=== PATIENT | male | born 1980 | race African-American/Black ===

== ENCOUNTER 2017-02-09 11:20 | Emergency (ER) | payer MEDICARE, OTHER ==
--- NOTE | 2017-02-09 13:41 | RAD ---
3 VIEWS RIGHT SHOULDER: Date: 02/09/17 HISTORY: Right shoulder pain. COMPARISON: 05/28/15. FINDINGS: AP internally, externally, and scapular Y views of right shoulder obtained. Three views right shoulder demonstrate no evidence of right shoulder fractures, subluxations, or bony lesions. IMPRESSION: Normal 3 views right shoulder. POS: [facility]
[2017-02-09] MEDS ORDERED: Diazepam 5 MG TAB ONE (13:46)
== END 2017-02-09 14:29 | disposition home or self-care (01) ==
LOC: ERS 11:20
DX: M25.511 Pain in right shoulder (principal); F31.9 Bipolar disorder, unspecified; F17.210 Nicotine dependence, cigarettes, uncomplicated

== ENCOUNTER 2018-02-01 14:48 | Observation (INO) | payer MEDICARE, MEDICAID ==
[2018-02-01 15:40] LABS: Bilirubin Negative (Negative); Blood, Urine Negative (Negative); Clarity CLEAR (Clear); Glucose, Urine (Dipstick) Negative (Negative); Leukocyte Negative (Negative); Nitrite Negative (Negative); Protein, Urine (Dipstick) Negative (Neg-Trace); Specific Gravity, Urine 1.004 (1.002-1.036); Urobilinogen 0.2 mg/dL (0.2-1.0); pH, Urine 7.5 (5.0-9.0)
[2018-02-01] MEDS ORDERED: Fosphenytoin Sodium 1,500 MG in Sodium Chloride 0.9% 100 ML IVPB SCH (15:45)
[2018-02-01] MEDS ORDERED: Lorazepam 2 MG/ML VIAL ONE (15:46)
[2018-02-01 15:51] LABS: #Basophils 0.1 thou/uL (0.0-0.2); #Eosinphils 0.3 thou/uL (0.0-0.7); #Lymphocytes 2.9 thou/uL (1.20-3.40); #Monocytes 0.8 thou/uL (0.11-0.59); #Neutrophils 4.9 thou/uL (1.40-6.50); %Eosinophils 3.7 % (0.0-10.0); %Lymphocytes 31.9 % (21.0-51.0); %Monocytes 9.1 % (0.0-10.0); %Neutrophils 54.3 % (42.0-75.0); Hemoglobin 14.6 g/dL (14.0-18.0); Mean Corpuscular HGB CONC 33.4 g/dL (32.0-36.0); Mean Corpuscular Hemoglobin 28.9 pg (27.0-31.0); Mean Corpuscular Volume 86.5 fL (78.0-98.0); Mean Platelet Volume 7.9 fL (7.4-10.4); Platelet Count 255 thou/uL (130-400); RBC Distribution Width 12.9 % (11.5-14.5); Red Blood Cell (RBC) Count 5.04 mill/uL (4.70-6.10)
[2018-02-01 15:51] LABS: Amphetamine Detected (NotDetected); Bacteria/HPF None Seen HPF (None Seen); Barbiturates Screen Detected (NotDetected); Benzodiazepine Screen Not Detected (NotDetected); Cocaine Metabolite Screen Not Detected (NotDetected); Hyaline Casts/LPF 0-3 HYALINE CAST LPF (0-3 Hyaline); Medtox Reader # READER 1; Methadone Not Detected (NotDetected); Methamphetamine Detected (NotDetected); Opiate Screen Not Detected (NotDetected); Oxycodone Screen Not Detected (NotDetected); Phencyclidine (PCP) Not Detected (NotDetected); RBC/HPF None Seen HPF (0-3); Squamous Epithelial None Seen HPF (0-3); THC/Cannabinoid Screen Not Detected (NotDetected); Tricyclic Screen Detected (NotDetected); WBC/HPF None Seen HPF (0-3)
[2018-02-01 15:52] LABS: Medtox Control Line Valid? VALID (VALID)
[2018-02-01 16:13] LABS: ALT (SGPT) 14 U/L (8-55); AST (SGOT) 16 U/L (5-34); Albumin 4.2 g/dL (3.5-5.0); Alkaline Phosphatase 69 U/L (40-150); Anion Gap 13 mmol/L (10-20); BUN (Urea Nitrogen) 11 mg/dL (8.9-20.6); Bilirubin, Total 0.6 mg/dL (0.2-1.2); Calc. Creatinine Clearance 0 mL/min (70-130); Carbon Dioxide 23 mmol/L (22-29); Chloride 102 mmol/L (98-107); Estimated GFR-MDRD Greater than 90; Globulin 3.3 g/dL (2.4-3.5); Glucose 76 mg/dL (70-105); Potassium 3.9 mmol/L (3.5-5.1); Protein, Total 7.5 g/dL (6.0-8.3); Sodium 134 mmol/L (136-145)
--- NOTE | 2018-02-01 16:17 | CT ---
CT HEAD WITHOUT CONTRAST: Technique: Multiple axial tomograms were obtained through the head without IV enhancement. Indication: Seizures. Comparison: 09-10-17 FINDINGS: Ventricles have normal size and position. No mass, edema, or hemorrhage. No evidence of infarct. No a cute finding or interval change noted. IMPRESSION: No acute abnormality. POS: [facility]
[2018-02-01 20:47] VITALS: BMI 27.9
[2018-02-01] MEDS ORDERED: Ondansetron PF 4 MG/2 ML Vial IVP PRN (21:30)
[2018-02-01] MEDS ORDERED: Acetaminophen 325 MG TAB PO PRN (21:30)
[2018-02-01] MEDS ORDERED: Lorazepam 2 MG/ML VIAL SLOW IVP PRN (21:30)
[2018-02-01] MEDS ORDERED: Ondansetron ODT 4 MG TAB PO PRN (21:30)
[2018-02-01] MEDS: Sodium Chloride 0.9% 1,000 ML IV SCH (22:11)
[2018-02-02] MEDS: Sodium Chloride 0.9% 1,000 ML IV SCH (05:50)
[2018-02-02 06:37] LABS: #Basophils 0.1 thou/uL (0.0-0.2); #Eosinphils 0.3 thou/uL (0.0-0.7); #Lymphocytes 2.3 thou/uL (1.20-3.40); #Monocytes 0.6 thou/uL (0.11-0.59); #Neutrophils 3.3 thou/uL (1.40-6.50); %Basophils 1.3 % (0.0-1.0); %Eosinophils 4.2 % (0.0-10.0); %Lymphocytes 35.1 % (21.0-51.0); %Monocytes 9.5 % (0.0-10.0); %Neutrophils 49.9 % (42.0-75.0); Hemoglobin 13.9 g/dL (14.0-18.0); Mean Corpuscular HGB CONC 32.8 g/dL (32.0-36.0); Mean Corpuscular Hemoglobin 28.5 pg (27.0-31.0); Mean Corpuscular Volume 86.7 fL (78.0-98.0); Mean Platelet Volume 8.6 fL (7.4-10.4); Platelet Count 247 thou/uL (130-400); RBC Distribution Width 12.9 % (11.5-14.5); Red Blood Cell (RBC) Count 4.89 mill/uL (4.70-6.10); White Blood Cell (WBC) Count 6.6 thou/uL (4.8-10.8)
[2018-02-02 06:46] LABS: Anion Gap 10 mmol/L (10-20); BUN (Urea Nitrogen) 10 mg/dL (8.9-20.6); Calc. Creatinine Clearance 123 mL/min (70-130); Calcium 8.3 mg/dL (7.8-10.44); Carbon Dioxide 26 mmol/L (22-29); Chloride 102 mmol/L (98-107); Estimated GFR-MDRD Greater than 90; Glucose 73 mg/dL (70-105); Potassium 3.6 mmol/L (3.5-5.1); Sodium 134 mmol/L (136-145)
--- NOTE | 2018-02-02 07:09 | HP ---
CHIEF COMPLAINT: Seizures. HISTORY OF PRESENT ILLNESS: This is a 37-year-old male with past medical history of seizures, asthma, GERD, presenting with seizures. Per record, the patient had history of childhood seizure, but the patient has not been treated. The patient reports the last time he had seizure was yesterday and Noe prior to the day of admission. The patient stated that he has been having seizures more frequently, and the patient is not on any medication at this time to treat the seizures. Per the patient's friend and electronic medical records, the patient states that he was lying in bed and started shaking for about 30 minutes and discontinued after the seizure subsided. Per friend who brought the patient into the hospital, the seizure activity happened three times on the day of admission. At this point, the patient denies active seizures at this time. The patient denies any fever, chills, nausea, vomiting, chest pain, palpitation, abdominal pain, nausea, vomiting, dysuria, hematuria, melena, hematochezia. REVIEW OF SYSTEMS: Positive for seizures, otherwise as documented in the HPI, all other systems were reviewed and are negative. PAST MEDICAL HISTORY: Significant for seizures and asthma. FAMILY HISTORY: Reviewed and noncontributory to this visit. SURGICAL HISTORY: Appendectomy, right knee orthopedic surgery. PSYCHIATRIC HISTORY: Bipolar and depression. SOCIAL HISTORY: The patient denies alcohol use. Denies any illicit drug. The patient smokes cigarettes. The patient smokes half a pack per day. ALLERGIES: THE PATIENT IS ALLERGIC TO IBUPROFEN AND TRAMADOL. CURRENT MEDICATIONS: The patient takes; 1. Zyprexa 20 mg. 2. Benztropine. 3. Trazodone. PHYSICAL EXAMINATION: VITAL SIGNS: The patient's blood pressure is 101/74, pulse is 75, respiratory rate of 16, and temperature of 98.1. GENERAL: The patient is alert and oriented x3. The patient is lying in bed. The patient does not feel like speaking at this time. The patient states that he is tired. HEENT: Normocephalic, atraumatic. Pupils are equally round and reactive to light. Extraocular movements are intact. No scleral icterus. No conjunctival pallor. Mucous membranes are dry. NECK: Supple. Trachea is midline. Full range of motion. No JVD. LUNGS: Clear to auscultation bilaterally. No wheezing, no rales, no rhonchi appreciated. CARDIAC: Positive S1 and S2. Regular rate and rhythm. No murmurs, no gallops, no rubs appreciated. ABDOMEN: Soft, nontender, and nondistended. Positive bowel sounds in all quadrants. No peritoneal signs. EXTREMITIES: 5/5 upper extremity strength. 5/5 lower extremity strength. Good pulses bilaterally at the upper and lower extremities. No edema noted. NEUROLOGIC: Cranial nerves 2 through 12 grossly intact. No neurologic deficits noted. SKIN: Warm, dry, and intact. PSYCHIATRIC: Normal affect. DIAGNOSTIC STUDIES: A 12-lead EKG shows sinus rhythm with a rate of 85. CT of the head was negative. EMERGENCY DEPARTMENT COURSE: The patient was given fosphenytoin and Ativan. LABORATORY DATA: Labs within normal limits except for toxicology, which shows positive barbiturates, tricyclics, amphetamine positive, and methamphetamine. ASSESSMENT AND PLAN: This is a 37-year-old male, being admitted for: 1. Seizures, most likely due to substance abuse. The patient has positive methamphetamine and amphetamine in the blood. At this point, we are going to supportively treat the patient by giving IV fluids. We will give the patient Keppra. We will get neurology consult. We will follow up with Neurology's recommendations. We will continue to monitor and treat the patient. 2. Substance abuse. At this point, we are going to advise the patient to stop using illegal substances and to try and stay away from such drugs since they can cause his seizures. 3. Deep venous thrombosis and gastrointestinal prophylaxis. Job ID: [id number]
[2018-02-02 08:09] VITALS: BP 114/67; TEMP 97.9
[2018-02-02] MEDS ORDERED: Famotidine/PF 20 mg/2ml Vial SLOW IVP SCH (09:00)
[2018-02-02] MEDS ORDERED: Famotidine 20 MG TAB PO SCH (09:00)
[2018-02-02] MEDS ORDERED: levETIRAcetam 500 MG in Sodium Chloride 0.9% 100 ML IVPB SCH (09:00)
--- NOTE | 2018-02-02 18:57 | DIS ---
DATE OF ADMISSION: 02/01/2018 DATE OF DISCHARGE: 02/02/2018 PRIMARY CARE PHYSICIAN: None. CONSULTANTS: None. PROCEDURES: The patient had brain CT, which showed no acute abnormality. HOSPITAL COURSE: Mr. Robison is a 37-year-old male, who presented to the emergency room for a seizure. Per the patient's friend and electronic medical records, the patient states he was lying in bed and started shaking for about 30 minutes, after which the seizure subsided. Per the friend, who brought the patient to the hospital, the seizure activity happened 3 times on the day of admission. The patient reports a past medical history positive for seizures, but denies taking other medications for it. He also has past medical history of asthma and GERD. The patient was admitted to the Stroke Unit for further management. The patient signed himself out AMA prior to being seen this morning. Of note, his laboratory data was within normal limits except for the toxicology, which showed positive for barbiturates, tricyclics, amphetamine, and methamphetamines. DISPOSITION: The patient left against medical advice. DISCHARGE DIAGNOSES: 1. Seizures. 2. Drug abuse. Job ID: [id number]
== END 2018-02-02 09:15 | disposition left against medical advice (07) ==
LOC: ERS 14:48 → 2SE 20:31
PROVIDERS: ADMIT Internal Medicine; ATTEND Internal Medicine
DX: G40.909 Epilepsy, unspecified, not intractable, without status epilepticus (principal); F13.10 Sedative, hypnotic or anxiolytic abuse, uncomplicated; F19.10 Other psychoactive substance abuse, uncomplicated; F15.10 Other stimulant abuse, uncomplicated; J45.909 Unspecified asthma, uncomplicated; K21.9 Gastro-esophageal reflux disease without esophagitis; F31.9 Bipolar disorder, unspecified; F17.210 Nicotine dependence, cigarettes, uncomplicated; Z90.49 Acquired absence of other specified parts of digestive tract; Z88.5 Allergy status to narcotic agent; Z88.6 Allergy status to analgesic agent; Z98.890 Other specified postprocedural states; Z79.899 Other long term (current) drug therapy
CPT/HCPCS: 70450; 80048; 80053; 80306; 81001; 83735; 84146; 84443; 85025 ×2; 93005; 96361 ×2; 96365; 96375; 99285; G0378 ×2; J1953; 36415; J2060; J7050; Q2009

== ENCOUNTER 2018-12-26 16:15 | Emergency (ER) | payer MEDICARE, OTHER ==
[2018-12-26] MEDS ORDERED: Acetaminophen 500 MG TAB ONE (16:32)
[2018-12-26] MEDS ORDERED: Cyclobenzaprine 10 MG TAB ONE (17:26)
== END 2018-12-26 17:30 | disposition home or self-care (01) ==
LOC: ERS 16:15
DX: M25.511 Pain in right shoulder (principal); J45.909 Unspecified asthma, uncomplicated; F31.9 Bipolar disorder, unspecified; F17.210 Nicotine dependence, cigarettes, uncomplicated
CPT/HCPCS: 99283

== ENCOUNTER 2021-12-21 22:53 | Emergency (ER) | payer OTHER ==
[2021-12-21 23:26] LABS: #Basophils 0.1 thou/uL (0.0-0.2); #Eosinphils 0.4 thou/uL (0.0-0.7); #Lymphocytes 3.2 thou/uL (1.20-3.40); #Monocytes 0.8 thou/uL (0.11-0.59); #Neutrophils 4.2 thou/uL (1.40-6.50); %Basophils 0.6 % (0.0-1.0); %Eosinophils 4.3 % (0.0-10.0); %Lymphocytes 37.5 % (21.0-51.0); %Monocytes 8.7 % (0.0-10.0); %Neutrophils 48.9 % (42.0-75.0); Hemoglobin 13.7 g/dL (14.0-18.0); Mean Corpuscular HGB CONC 32.7 g/dL (32.0-36.0); Mean Corpuscular Hemoglobin 28.8 pg (27.0-31.0); Mean Corpuscular Volume 88.2 fl (78.0-98.0); Mean Platelet Volume 8.9 fL (7.4-10.4); Platelet Count 194 thou/uL (130-400); RBC Distribution Width 12.7 % (11.5-14.5); Red Blood Cell (RBC) Count 4.76 mill/uL (4.70-6.10); White Blood Cell (WBC) Count 8.6 thou/uL (4.8-10.8)
[2021-12-21 23:42] LABS: Acetaminophen Less than 10.0 mcg/mL (10.0-30.0); Alcohol Less than 10 mg/dL (Less than 10); Salicylate Less than 8.0 mg/dL (15.0-30.0)
[2021-12-21 23:44] LABS: ALT (SGPT) 9 U/L (8-55); AST (SGOT) 9 U/L (5-34); Albumin 2.8 g/dL (3.5-5.0); Alkaline Phosphatase 39 U/L (40-110); Anion Gap 9 mmol/L (10-20); BUN (Urea Nitrogen) 16 mg/dL (8.9-20.6); Bilirubin, Total 0.3 mg/dL (0.2-1.2); Calc. Creatinine Clearance 0 mL/min (70-130); Calcium 7.6 mg/dL (7.8-10.44); Carbon Dioxide 26 mmol/L (22-29); Chloride 105 mmol/L (98-107); Estimated GFR 78; Globulin 1.9 g/dL (2.4-3.5); Glucose 148 mg/dL (70-105); Potassium 3.2 mmol/L (3.5-5.1); Protein, Total 4.7 g/dL (6.0-8.3); Sodium 137 mmol/L (136-145)
[2021-12-22 00:23] LABS: Bilirubin Negative (Negative); Blood, Urine Negative (Negative); Clarity Clear (Clear); Glucose, Urine (Dipstick) Normal (Negative); Ketone, Urine Negative (Negative); Leukocyte Negative Leu/uL (Negative); Nitrite Negative (Negative); Protein, Urine (Dipstick) 20 mg/dL (Neg-Trace); Specific Gravity, Urine 1.028 (1.002-1.036); pH, Urine 6.5 (5.0-9.0)
[2021-12-22 00:30] LABS: Amphetamine Not Detected (NotDetected); Barbiturates Screen Not Detected (NotDetected); Benzodiazepine Screen Not Detected (NotDetected); Cocaine Metabolite Screen Not Detected (NotDetected); Methadone Not Detected (NotDetected); Methamphetamine Not Detected (NotDetected); Opiate Screen Not Detected (NotDetected); Oxycodone Screen Not Detected (NotDetected); Phencyclidine (PCP) Not Detected (NotDetected); THC/Cannabinoid Screen Not Detected (NotDetected); Tricyclic Screen Not Detected (NotDetected)
== END 2021-12-22 01:25 | disposition home or self-care (01) ==
LOC: ERS 22:53
DX: R55 Syncope and collapse (principal)
CPT/HCPCS: 36415; 36416; 80053; 80306; 80307; 81003; 84443; 85025; 93005; 96360

== ENCOUNTER 2023-08-07 02:48 | Emergency (ER) | payer MEDICAID, MEDICARE, OTHER ==
[2023-08-07] MEDS ORDERED: Acetaminophen 500 MG TAB ONE (03:08)
== END 2023-08-07 03:14 | disposition home or self-care (01) ==
LOC: ERS 02:48
DX: K04.7 Periapical abscess without sinus (principal); K02.9 Dental caries, unspecified; F17.210 Nicotine dependence, cigarettes, uncomplicated
CPT/HCPCS: 99282

== ENCOUNTER 2024-02-20 05:46 | Inpatient (IN) | payer OTHER ==
[2024-02-20 06:15] LABS: #Basophils 0.08 10x3/uL (0.0-0.2); %Eosinophils 6.1 % (0.0-10.0); %Lymphocytes 29.1 % (21.0-51.0); %Monocytes 11.2 % (0.0-10.0); Hematocrit 40.1 % (42.0-52.0); Hemoglobin 13.3 g/dL (14.0-18.0); Mean Corpuscular HGB CONC 33.2 g/dL (32.0-36.0); Mean Corpuscular Hemoglobin 27.3 pg (27.0-31.0); Mean Corpuscular Volume 82.2 fL (78.0-98.0); Mean Platelet Volume 9.4 fL (7.4-10.4); Platelet Count 266 10x3/uL (130-400); RBC Distribution Width 14.5 % (11.5-14.5); Red Blood Cell (RBC) Count 4.88 mill/uL (4.70-6.10)
[2024-02-20] MEDS ORDERED: Lorazepam 2 MG/ML VIAL ONE (06:15)
[2024-02-20] MEDS ORDERED: KETAMINE 100 MG/ML (5ML VIAL) ONE (06:16)
[2024-02-20] MEDS ORDERED: Rocuronium Bromide 10 MG/ML (10ML VIAL) ONE (06:16)
[2024-02-20 06:30] LABS: ALT (SGPT) 32 U/L (8-55); AST (SGOT) 18 U/L (5-34); Acetaminophen Less than 10 mcg/mL (Less than 10); Albumin 3.3 g/dL (3.5-5.0); Alcohol Less than 10.0 mg/dL (Less than 10); Alkaline Phosphatase 56 U/L (40-110); Anion Gap 11 mmol/L (10-20); BUN (Urea Nitrogen) 12 mg/dL (8.9-20.6); Bilirubin, Total 0.6 mg/dL (0.2-1.2); Calc. Creatinine Clearance 0 mL/min (70-130); Calcium 7.9 mg/dL (7.8-10.44); Carbon Dioxide 23 mmol/L (22-29); Chloride 106 mmol/L (98-107); Estimated GFR 96; Globulin 2.2 g/dL (2.4-3.5); Glucose 91 mg/dL (70-105); Potassium 3.6 mmol/L (3.5-5.1); Protein, Total 5.5 g/dL (6.0-8.3); Salicylate Less than 8.0 mg/dL (Less than 8.0); Sodium 136 mmol/L (136-145)
[2024-02-20] MEDS ORDERED: fentaNYL 50 mcg/mL 1 mL Vial ONE (06:39)
[2024-02-20 06:48] LABS: Actual Bicarbonate (HCO3a) 22.9 mEq/L (22-28); Analyzer IN Cardio ER; CO2 Tension 29.5 mmHg (35.0-45.0); Calcium, Ionized (arterial) 1.11 mmol/L (1.12-1.30); Carboxyhemoglobin (COHb) 1.7 gm% (0.0-3.0); Hematocrit-ABG 44 % (42.0-52.0); Hemoglobin (Hb) 15.1 g/dL (14.0-18.0); Potassium - ABG Lab 3.74 mmol/L (3.70-5.30); pH, Arterial 7.508 (7.35-7.45)
[2024-02-20 07:10] LABS: Troponin I Less than 0.010 ng/mL (< 0.028)
[2024-02-20 07:14] LABS: Amphetamine Detected (NotDetected); Bacteria/HPF None Seen HPF (None Seen); Barbiturates Screen Not Detected (NotDetected); Benzodiazepine Screen Not Detected (NotDetected); Bilirubin Negative (Negative); Blood, Urine Negative (Negative); CAUTI Indications for Culture Alt mental st,lethar; Clarity Clear (Clear); Cocaine Metabolite Screen Not Detected (NotDetected); Glucose, Urine (Dipstick) Normal (Negative); Ketone, Urine Negative (Negative); Leukocyte Negative Leu/uL (Negative); Methadone Not Detected (NotDetected); Methamphetamine Detected (NotDetected); Nitrite Negative (Negative); Opiate Screen Not Detected (NotDetected); Oxycodone Screen Not Detected (NotDetected); Phencyclidine (PCP) Not Detected (NotDetected); Protein, Urine (Dipstick) 20 mg/dL (Neg-Trace); RBC/HPF None Seen HPF (0-3); Specific Gravity, Urine 1.023 (1.002-1.036); Squamous Epithelial 0-3 HPF (0-3); THC/Cannabinoid Screen Not Detected (NotDetected); Tricyclic Screen Not Detected (NotDetected); Urobilinogen Normal mg/dL (Less than 2); WBC/HPF 0-3 HPF (0-3)
[2024-02-20 07:16] LABS: Urine Culture Reflex No No
[2024-02-20] MEDS ORDERED: Midazolam HCl 2 mg/2 ml Vial ONE (07:16)
[2024-02-20] MEDS ORDERED: Activated Charcoal (AQUA) 25 GM/120 ML TUBE ONE (07:18)
[2024-02-20] MEDS ORDERED: levETIRAcetam 500 MG (5 mL) VIAL ONE (07:33)
[2024-02-20] MEDS ORDERED: Propofol 1,000 MG/100 ML VIAL IV ONE (07:44)
[2024-02-20] MEDS ORDERED: Midazolam In 0.9 % NaCl/PF 100 ML IVPB SCH (07:45)
[2024-02-20] MEDS ORDERED: Electrolyte Replacement Protocol 1 EACH IVPB SCH (07:46)
[2024-02-20] MEDS: Nicotine 21 MG PATCH TD SCH (08:58)
[2024-02-20] MEDS: levETIRAcetam 500 MG (5 mL) VIAL SLOW IVP SCH (10:11)
[2024-02-20] MEDS: Lactated Ringer's 1,000 ML IV SCH (12:31)
[2024-02-20] MEDS: Propofol 1,000 MG/100 ML VIAL IV PRN (14:39)
[2024-02-21 03:53] LABS: #Basophils 0.04 10x3/uL (0.0-0.2); %Basophils 0.3 % (0.0-1.0); %Eosinophils 3.8 % (0.0-10.0); %Lymphocytes 20.1 % (21.0-51.0); %Monocytes 13.4 % (0.0-10.0); %Neutrophils 62.1 % (42.0-75.0); Hematocrit 41.3 % (42.0-52.0); Hemoglobin 13.6 g/dL (14.0-18.0); Mean Corpuscular HGB CONC 32.9 g/dL (32.0-36.0); Mean Corpuscular Volume 82.1 fL (78.0-98.0); Mean Platelet Volume 10.1 fL (7.4-10.4); Platelet Count 259 10x3/uL (130-400); RBC Distribution Width 14.8 % (11.5-14.5); Red Blood Cell (RBC) Count 5.03 mill/uL (4.70-6.10)
[2024-02-21 04:05] LABS: Anion Gap 12 mmol/L (10-20); BUN (Urea Nitrogen) 11 mg/dL (8.9-20.6); Calc. Creatinine Clearance 141 mL/min (70-130); Calcium 8.2 mg/dL (7.8-10.44); Carbon Dioxide 25 mmol/L (22-29); Chloride 103 mmol/L (98-107); Estimated GFR 113; Glucose 75 mg/dL (70-105); Potassium 3.6 mmol/L (3.5-5.1); Sodium 136 mmol/L (136-145)
[2024-02-21 05:45] VITALS: BMI 26.7
[2024-02-21] MEDS: Fentanyl CADD 100 ML IV SCH (06:45)
[2024-02-21 10:02] VITALS: BMI 26.7
[2024-02-21] MEDS: Lactulose 20 GM (30 mL) UDCUP PO SCH (10:11)
[2024-02-21] MEDS: Acetaminophen 325 MG TAB PO PRN (19:58)
[2024-02-22] MEDS ORDERED: Lorazepam 2 MG/ML VIAL SLOW IVP PRN (01:33)
[2024-02-22 05:24] LABS: #Basophils 0.04 10x3/uL (0.0-0.2); %Basophils 0.4 % (0.0-1.0); %Eosinophils 3.8 % (0.0-10.0); %Lymphocytes 17.6 % (21.0-51.0); %Monocytes 12.5 % (0.0-10.0); %Neutrophils 65.3 % (42.0-75.0); Hematocrit 38.8 % (42.0-52.0); Hemoglobin 12.8 g/dL (14.0-18.0); Mean Corpuscular Hemoglobin 26.8 pg (27.0-31.0); Mean Corpuscular Volume 81.2 fL (78.0-98.0); Mean Platelet Volume 9.5 fL (7.4-10.4); Platelet Count 243 10x3/uL (130-400); RBC Distribution Width 14.1 % (11.5-14.5); Red Blood Cell (RBC) Count 4.78 mill/uL (4.70-6.10)
[2024-02-22 05:38] LABS: Anion Gap 10 mmol/L (10-20); BUN (Urea Nitrogen) 9 mg/dL (8.9-20.6); Calc. Creatinine Clearance 131 mL/min (70-130); Calcium 8.4 mg/dL (7.8-10.44); Carbon Dioxide 26 mmol/L (22-29); Chloride 103 mmol/L (98-107); Estimated GFR 111; Glucose 101 mg/dL (70-105); Potassium 3.5 mmol/L (3.5-5.1); Sodium 135 mmol/L (136-145)
[2024-02-22] MEDS: Potassium Chloride 20 MEQ TAB PO SCH (08:55)
[2024-02-22] MEDS: ALPRAZolam 0.25 MG TAB PO PRN (12:44)
[2024-02-22] MEDS ORDERED: Electrolyte Replacement Protocol FS PRN (12:45)
[2024-02-22 21:18] VITALS: BP 136/88; TEMP 98
== END 2024-02-22 23:00 | DRG 917 ==
LOC: ERS 05:46 → CCU 06:14 → T4-B 02-21 14:18
PROVIDERS: ADMIT Internal Medicine; ATTEND Internal Medicine
PROC: 0BH17EZ Insertion of Endotracheal Airway into Trachea, Via Natural or Artificial Opening (ICD-10-PCS; principal; 2024-02-20)
PROC: XX20X89 Monitoring of Brain Electrical Activity, Computer-aided Detection and Notification, New Technology Group 9 (ICD-10-PCS; 2024-02-20)
PROC: 4A033R1 Measurement of Arterial Saturation, Peripheral, Percutaneous Approach (ICD-10-PCS; 2024-02-20)
PROC: 5A1945Z Respiratory Ventilation, 24-96 Consecutive Hours (ICD-10-PCS; 2024-02-20)
DX: T42.8X2A Poisoning by antiparkinsonism drugs and other central muscle-tone depressants, intentional self-harm, initial encounter (principal); J96.00 Acute respiratory failure, unspecified whether with hypoxia or hypercapnia; F31.9 Bipolar disorder, unspecified; F17.210 Nicotine dependence, cigarettes, uncomplicated; F41.9 Anxiety disorder, unspecified; Z88.2 Allergy status to sulfonamides; Z88.8 Allergy status to other drugs, medicaments and biological substances; Z90.49 Acquired absence of other specified parts of digestive tract; Z98.890 Other specified postprocedural states; R56.9 Unspecified convulsions; Z79.899 Other long term (current) drug therapy
CPT/HCPCS: 31500; 36415; 43753; 51702; 70450; 71045; 80048; 80053; 80306; 80307; 81001; 82550; 82805; 83605; 84146; 84484; 85025; 93005; 94002; 94003; 96374; J1953; J2060; J2250; J2704; J3010; J7120